=== PATIENT | female | born 1990 | race Caucasian/White ===

== ENCOUNTER → 2023-12-26 | Outpatient (CLI) | payer OTHER, SELFPAY | END | disposition home or self-care (01) | LOC: LABSPEC 16:39 | PROVIDERS: Referring Provider Nurse Practitioner Women's Health; Visit Provider Nurse Practitioner Women's Health | DX: N89.8 Other specified noninflammatory disorders of vagina (principal) | CPT/HCPCS: 87070; 87205; 87624; 88175; G0145 ==

== ENCOUNTER → 2025-06-17 | Outpatient (CLI) | payer OTHER, SELFPAY ==
--- OUTSIDE RECORDS SUMMARY | 2025-06-17 07:26 | XMS RPT_ITS | CCD ---
Author Organization [facility] Care Team Providers Care Software Support Representative Name Role Phone Shiraz Harmon Primary Care Provider Magdy APPRAISER ART, CHRISTOPHER Corbett Attending Provider Shiraz Harmon MD Primary Care Provider SHIRAZ HARMON Attending Unavailable SHIRAZ HARMON Primary Care Unavailable SHIRAZ HARMON Attending Unavailable SHIRAZ HARMON Primary Care Unavailable King SOLIS, Dr. Johnson Attending Provider [phone] Carlos ELY, Dr. Ng Primary Care Provider Dr. Shiraz Harmon MD Referring Provider Alex Tony Attending Unavailable Shiraz Harmon Referring Unavailable Shiraz Harmon Primary Care Unavailable Medications Current Medications Medication Drug Class(es) Dates Sig (Normalized) Sig (Original) acetaminophen 325 mg / butalbital 50 mg / caffeine 40 mg oral tablet (14 sources) Barbiturate, Central Nervous System Stimulant, Methylxanthine Start: 09-04-2019 butalbital-aceta minophen-caffein e 50-325-40 MG tablet Take 1 tablet by mouth. 09/04/2019 Active Start: 09-04-2019 take 1 tablet by mouth every four hours jaglgluasw-crlhbuqcpeash-gzcgsqnz (CAYDEN CET, ESGIC) 50-325-40 MG per tablet Take 1 tablet by mouth every 4 hours 0 09/04/2019 Active Ascorbic Acid (1 source) Vitamin C Ascorbic Acid (V ITAMIN C PO) Take by mouth 0 Active Lactobacillus acidophilus (1 source) Lactobacillus (PROBIOTIC ACIDOPHILUS PO) Take by mouth 0 Active levothyroxine sodium 0.088 mg oral tablet (20 sources) l-Thyroxine Start: 02-21-2025 take 1 tablet by mouth once daily Levothyroxine (Unithroid) 88 mcg tablet Active 88 ug PO daily 90 3 February 21, 2025 12:00am Start: 09-20-2022 End: 06-20-2024 take 1 tablet by mouth once daily Levothyroxine (Euthyrox) 75 mcg tablet Active 75 ug PO DAILY December 26, 2023 12:00am Start: 11-06-2020 take 1 tablet by elmira th once daily EUTHYROX 50 MCG tablet Take 1 tablet by mouth once daily 90 tablet 1 11/06/2020 Active Magnesium (15 sources) Start: 12-26-2023 take 1 tablet by elmira th once daily Magnesium 250 mg tablet Active 250 mg PO DAILY December 26, 2023 12:00am Start: 12-26-2023 take 250 mg by mouth once dai y Magnesium Active 250 MG PO DAILY December 26, 2023 12:00am MAGNESIUM PO Akbar e by mouth. Active MAGNESIUM PO Akbar e by mouth. 0 Active Magnesium Hydroxide (1 source) Magnesium Hydrox emmanuel (MAGNESIA PO) Take by mouth 0 Active Probiotic Product (PROBIOTIC PO) (13 sources) Probiotic Produc t (PROBIOTIC PO) Take by mouth. Active Probiotic Produc t (PROBIOTIC PO) Take by mouth. 0 Active rizatriptan 10 mg disintegrating oral tablet (2 sources) Serotonin-1b and Serotonin-1d Receptor Agonist Start: 08-01-2024 rizatriptan AFRICAN HISTORY PROFESSOR (Maxalt-AFRICAN HISTORY PROFESSOR) 10 MG disintegrating tablet Take 1 tablet (10 mg) by mouth Once as needed for migraine. May repeat in 2 hours if unresolved. Do not exceed 30 mg in 24 hours. 9 tablet 08/01/2024 Active saccharomyces boulardii 250 mg oral capsule (2 sources) Start: 12-26-2023 take 1 capsule by mouth twice daily Saccharomyces Boulardii (Daily Probiotic (S. Boulardii)) 250 mg capsule Active 250 mg PO TWICE A DAY December 26, 2023 12:00am Completed/Discontinued Medications Medication Drug Class(es) Dates Sig (Normalized) Sig (Original) acetaminophen 325 mg / oxyCODONE hydrochloride 5 mg oral tablet (2 sources) Opioid Agonist Start: 11-01-2015 End: 12-26-2023 Oxycodone-Acetamino phen 1 TABLET tablet Discontinued 1 - 2 {tbl} PO EVERY 4 HOURS NEEDED as needed for Pain 15 0 November 01, 2015 1:00am December 26, 2023 2:47pm Start: 11-01-2015 End: 12-26-2023 take 1 tablet by mouth every four hours as needed Oxycodone-Acetaminophen Discontinued 1 - 2 TABLET PO EVERY 4 HOURS NEEDED 15 November 01, 2015 1:00am December 26, 2023 2:47pm hydrOXYzine hydrochloride 25 mg oral tablet (2 sources) Antihistamine Start: 01-30-2024 End: 06-20-2024 take 25-50 mg by mouth every eight hours as needed for anxiety hydrOXYzine HCl (Atarax) 25 MG tablet Take 1-2 tablets (25-50 mg) by mouth every 8 hours as needed for anxiety. 15 tablet 01/30/2024 06/20/2024 Discontinued (Therapy completed) naproxen 250 mg oral tablet (2 sources) Nonsteroidal Anti-inflammatory Drug Start: 11-01-2015 End: 12-26-2023 take 2 tablets by mouth every eight hours as needed for pain Naproxen 250 MG tablet Discontinued 500 mg PO EVERY 8 HOURS NEEDED as needed for MILD PAIN () 40 0 November 01, 2015 1:00am December 26, 2023 2:46pm Start: 11-01-2015 End: 12-26-2023 take 500 mg by mouth every eight hours as needed Naproxen Discontinued 500 MG PO EVERY 8 HOURS NEEDED 40 November 01, 2015 1:00am December 26, 2023 2:46pm Pedi Multivitamin No.79-Iron (Flintstones With Iron Tab Chew) 18 MG tablet,chewable (2 sources) Start: 10-21-2015 End: 12-26-2023 take 1 tablet by mouth once daily Pedi Multivitamin No.79-Iron (Flintstones With Iron Tab Chew) 18 MG tablet,chewable Discontinued 18 mg PO DAILY October 21, 2015 1:00am December 26, 2023 2:47pm Start: 10-21-2015 End: 12-26-2023 take 1 tablet by mouth once daily Pedi Multivitamin No.79-Iron (Flintstones With Iron Tab Chew) 18 MG tablet,chewable Discontinued 18 MG PO DAILY October 21, 2015 1:00am December 26, 2023 2:47pm Problems Active Problems Problem Classification Problem Date Documented Date Episodic/Chronic Headache; including migraine (20 sources) Migraine without aura, not refractory ; Translations: [Migraine without aura, not intractable, without status migrainosus] Onset: 05-09-2020 05-09-2020 Chronic Malaise and fatigue (13 sources) Fatigue; Translations: [Chronic fatigue, unspecified] Onset: 05-09-2020 06-06-2022 Chronic Mood disorders (17 sources) Dysthymia; Translations: [Dysthymic disorder] Onset: 07-08-2022 07-08-2022 Chronic Other female genital disorders (1 source) Other specified noninflammatory disorders of vagina; Translations: [Pruritus of genital organs] 12-26-2023 Episodic Residual codes; unclassified (1 source) Influenza vaccination declined; Translations: [Immunization not carried out because of patient refusal] 06-20-2024 Episodic Thyroid disorders (20 sources) 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; Translations: [Other specified hypothyroidism] Onset: 05-09-2020 05-09-2020 Chronic Unclassified (1 source) Patient encounter status; Translations: [Annual physical exam] Onset: 11-06-2020 11-06-2020 Past or Other Problems Problem Classification Problem Date Documented Da te Episodic/Chronic Cardiac dysrhythmias (15 sources) Palpitations; Translations: [Palpitations] Onset: 11-06-2020 11-06-2020 Episodic Malaise and fatigue (1 source) Fatigue; Translations: [Chronic fatigue] Onset: 05-09-2020 05-09-2020 Episodic Mood disorders (6 sources) Mood disorders Onset: 12-12-2023 Resolved: 12-19-2024 12-12-2023 Other hematologic conditions (14 sources) Personal history of diseases of the blood and blood-forming organs and certain disorders involving the immune mechanism; Translations: [History of thrombocytopenia] Onset: 04-03-2015 05-09-2020 Episodic Residual codes; unclassified (2 sources) Immunization not carried out because of patient refusal; Translations: [Immunization not carried out because of patient refusal] Onset: 06-20-2024 Episodic Results Test Name Value Interpretation Reference Range Facility Endocrinology Visit Reporton 02-21-2025 Endocrinology Visit Report [facility] [address] [place] [address]. [address] [place] [address] OFFICE VISIT Date of Service: 02/21/25 MR#: [id number] Acct: [id number] Name: TINY MORENO Rep #: [id number] : 1990 Provider: Cristhian Panchal Age/Sex: 34/F Location: [facility] Status: Signed Intake Vital Signs 12/26/23 14:53 02/21/25 13:06 Height 5 ft 6 in 5 ft 6 in Weight: 153 lb 4 oz BMI 24.7 BP 110/73 Blood Pressure Location Lt brachial Position Sitting Pulse 79 Pulse Source Monitor Pulse Oximetry (%) 99 Oxygen Delivery Method room air Intake Visit Reasons: Hypothyroid Chief Complaint: Thyroid Is patient in pain?: No Allergies No Known Allergies Allergy (Verified 12/26/23 14:46) Medications ???Medication ???Instructions ???Recorded ???Confirmed ???Type Saccharomyces boulardii 250 mg 250 mg PO BID 12/26/23 02/21/25 Hi story capsule (Daily Probiotic (S. boulardii)) levothyroxine 75 mcg tablet 75 mcg PO DAILY 12/26/23 02/21/25 History (Euthyrox) magnesium 250 mg tablet 250 mg PO DAILY 12/26/23 02/21/25 History levothyroxine 88 mcg tablet 88 mcg PO QDAY #90 tabs 02/21/25 0 02/21/25 Rx (Unithroid) PFSH Medical History Migraines UTI (urinary tract infection) Bone fracture Anemia Danielle's thyroiditis Surgical History H/O laparoscopy Family History Grandfather Breast cancer Paternal Grandfather Cancer Paternal- Lung Colon cancer Grandfather Cancer Lung and Brain - Maternal Other Crohn's disease Depression Hypertension Myocardial infarction Seizures Thyroid disorder Social History household members: spouse current occupation: [employer] Smoking Status: Never smoker alcohol intake: never substance use type: does not use seatbelt use: always do you feel safe at home: Yes additional social history: - [employer] HPI HPI Chief Complaint: Thyroid Details: * TINY MORENO, is a 34 F who presents to the office today for evaluation and management of thyroid disease. * * She reports she had abnormal thyroid studies in her 20's. In 2019 she was told she had Danielle's thyroiditis and was started on levothyroxine 50 mcg for 3 months and then 75 mcg. * * She states that she feels that something is off, but it isn't showing up in her labs. She thinks her dose needs to be changed. * She reports hair loss, difficulty losing weight. She reports increased emotions. Cycles are regular. * * She reports difficulty losing weight despite a healthy diet and regular exercise. ROS Const Constitutional: Positive for fatigue and other (difficulty losing weight); No weight change or change in appetite Eyes Eyes: No change in vision ENT ENT: No dizziness/vertigo or difficulty swallowing Cardio Cardiology: No chest pain at rest, chest pain with exertion, shortness of breath or palpitations Musc Musculoskeletal: No abnormal gait, joint pain, numbness or tingling Neuro Neurology: No abnormal gait, memory loss, numbness or tingling Psych Psychiatric: No change in appetite, No memory loss, Positive for mood swings and No Thoughts of harming yourself/Others Resp Respiratory: No cough, chest congestion or shortness of breath Gastro GI: No abdominal pain, constipation, diarrhea or difficulty swallowing Genitourinary-Female : No burning urination Skin Skin: No itchy eyes or wounds Endo Endocrine: Positive for fatigue; No weight change Aller/Imm Allergy/Immunologic: No itchy eyes Exam Const General: cooperative, healthy appearing, comfortable, no acute distress, well developed and not cushingoid Nutritional Appearance: well nourished Orientation: alert, awake and oriented x3 HENMT Head: normal to inspection Ears: hearing grossly normal bilaterally Nose: external nose normal Mouth: oral mucosae normal Eyes General: appearance normal, both eyes and all related structures Alignment and Position: alignment normal Periorbital: periorbital findings normal Eyelids: eyelids normal Conjunctivae: conjunctivae normal Neck Neck: normal visual inspection Neck mass: No Thyroid: thyroid normal and firm Lymphatic: no lymphadenopathy noted Chest Chest palpation inspection: normal inspection of the chest Resp Effort Inspection: normal respiratory effort, able to speak in complete sentences, symmetric chest movement, no audible wheezes and no cough Auscultation: Bilateral: Clear to Auscultation Cardio Rate: regular rate Rhythm: regular rhythm Pulses: posterior tibial pulses present Skin General: no (more content not included)... Normal [facility] 36on 12-21-2024 36 ----- Message from Shiraz Harmon MD sent at 12/21/2024 6:25 AM EDT ----- Thyroid test TSH free T4 and free T3 are all normal. Thyroglobulin antibodies are normal however thyroid peroxidase antibodies are little high, recommend endocrinology referral for further evaluation Normal [facility] Office Visiton 12-19-2024 Follow-up visit [id number] Josh,iTny Nichols 1990 F Date Provider Department Center 12/19/2024 [id number] HARMON [facility] Family History Problem Relation Age of Onset Asthma Brother No Known Problems Father Asthma Sister Depression Mother Cancer Paternal Grandmother Substance Abuse Paternal Grandfather Family Status - Relation Status Age at Brother Alive Father Alive Sister Alive Mother Alive Paternal Grandmother Paternal Grandfather Maternal Grandmother Maternal Grandfather Level of Service:58129 UT PERIODIC PREVENTIVE MED EST PATIENT 18-39 YRS Reason for Visit and Comments: Annual Exam [83] Blood Work [500578] - Cmp and lipid and tsh done 06/03/24 Health Maintenance [872] - Hiv/hep c screening- refuse Hep b vaccine- refuse Normal [facility] Progress Noteon 12-19-2024 Progress Note Stable, continue Fioricet and Maxalt as needed. Normal [facility] Progress Note Mood swings, currently not on any medication and is not interested in taking any at this time Normal [facility] Progress Note Stable, we will check thyroid levels and antibody levels to see if there has been any significant change. Normal [facility] Progress Note 12/19/2024 Tinynoah Moreno (: 1990) is a 34 y.o. female , Established patient, here for evaluation of the following chief complaint(s): Annual Exam, Blood Work (Cmp and lipid and tsh done 06/03/24), and Health Maintenance (Hiv/hep c screening- refuse/Hep b vaccine- refuse) ASSESSMENT/PLAN: 1. Annual physical exam 2. 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 Orders: - Anti-thyroglobulin antibody - TSH - Thyroid peroxidase antibody - T4, free - T3, free 3. Dysthymia Assessment & Plan: Mood swings, currently not on any medication and is not interested in taking any at this time 4. Migraine without aura and without status migrainosus, not intractable Assessment & Plan: Stable, continue Fioricet and Maxalt as needed. Follow up in about 6 months (around 06/20/2025). SUBJECTIVE/OBJECTIVE : CARMELO Quijano comes in today for an annual checkup, she had a lot of blood work done back in May so we do not need to recheck her cholesterol or her chemistries. Her only real complaint today is that she just feels like her thyroid is off she has a history of Danielle's thyroiditis, she feels like her neck is swollen feels like her voice is changed and mood swings. No other complaints, see ROS. Review of Systems Constitutional: Negative for chills and fever. Respiratory: Negative for shortness of breath. Cardiovascular: Negative for chest pain and palpitations. Gastrointestinal: Negative for abdominal pain, blood in stool, constipation and diarrhea. Genitourinary: Negative for dyspareunia, dysuria, frequency, hematuria and urgency. Neurological: Negative for weakness and numbness. Psychiatric/Behavior al: Negative for dysphoric mood. The patient is not nervous/anxious. Vitals: 12/19/24 0841 BP: 88/54 Pulse: 76 SpO2: 98% Weight: 151 lb 9.6 oz (68.8 kg) Height: 5' 5.5" (1.664 m) Physical Exam Vitals and nursing note reviewed. Constitutional: General: She is not in acute distress. Appearance: Normal appearance. HENT: Head: Normocephalic. Right Ear: Tympanic membrane, ear canal and external ear normal. Left Ear: Tympanic membrane, ear canal and external ear normal. Mouth/Throat: Mouth: Mucous membranes are moist. Pharynx: Oropharynx is clear. Eyes: Extraocular Movements: Extraocular movements intact. Pupils: Pupils are equal, round, and reactive to light. Neck: Thyroid: No thyromegaly. Cardiovascular: Rate and Rhythm: Normal rate and regular rhythm. Heart sounds: Normal heart sounds. No murmur heard. Pulmonary: Effort: Pulmonary effort is normal. Breath sounds: Normal breath sounds. Abdominal: General: Bowel sounds are normal. Palpations: Abdomen is soft. Musculoskeletal: General: Normal range of motion. Cervical back: Normal range of motion. Lymphadenopathy: Cervical: No cervical adenopathy. Skin: General: Skin is warm and dry. Neurological: General: No focal deficit present. Mental Status: She is alert and oriented to person, place, and time. Psychiatric: Mood and Affect: Mood normal. An electronic signature was used to authenticate this note. Shiraz Harmon MD 12/19/2024 9:22 AM [facility] Progress Note Patient verified by last name and date of . [facility] 36on 08-08-2024 36 This was switched to Maxalt, awaiting prior auth for this med. [facility] 36on 08-06-2024 36 Waiting for payer response. [facility] 36on 08-02-2024 36 [facility] Office Visiton 06-20-2024 Follow-up visit [id number] Tiny Moreno 1990 F Date Provider Department Center 06/20/2024 [id number] HARMON [facility] Family History Problem Relation Age of Onset Asthma Brother No Known Problems Father Asthma Sister Depression Mother Cancer Paternal Grandmother Substance Abuse Paternal Grandfather Family Status - Relation Status Age at Brother Alive Father Alive Sister Alive Mother Alive Paternal Grandmother Paternal Grandfather Maternal Grandmother Maternal Grandfather Level of Service:42835 UT OFFICE/OUTPATIENT ESTABLISHED LOW MDM 20 MIN Reason for Visit and Comments: Hypothyroidism [143] Migraine [253632] Medication Check [4861414060] - 6 month Health Maintenance [872] - Pap- sees [facility] - will send for last pap from 12/2023 Flu vaccine- refuse Covid vaccine- not done [facility] Progress Noteon 06-20-2024 Progress Note Stable, continue Fioricet as needed. Normal [facility] Progress Note Stable, she brings in lab work which is excellent she has normal thyroid levels, will continue Euthyrox 75 mcg daily. Normal [facility] Progress Note Patient verified by last name and date of . Normal [facility] Progress Note 06/20/2024 Tiny Moreno (: 1990) is a 33 y.o. female , Established patient, here for evaluation of the following chief complaint(s): Hypothyroidism, Migraine, Medication Check (6 month ), and Health Maintenance (Pap- sees [facility] - will send for last pap from 12/2023/Flu vaccine- refuse/Covid vaccine- not done) ASSESSMENT/PLAN: 1. 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 2. Migraine without aura and without status migrainosus, not intractable Assessment & Plan: Stable, continue Fioricet as needed. 3. Influenza vaccine refused Follow up in about 6 months (around 12/19/2024). SUBJECTIVE/OBJECTIVE : CARMELO Quijano comes in today for 6-month follow-up on her hypothyroidism, she has no complaints today says she is doing well on her medications she is wondering if there is anything natural or homeopathic that she can take for her thyroid which currently is not possible. She has no other complaints at this time, see ROS. Her migraines seem to be well-controlled. She brings in lab work which is essentially all normal. Review of Systems Constitutional: Negative for chills and fever. Respiratory: Negative for shortness of breath. Cardiovascular: Negative for chest pain and palpitations. Gastrointestinal: Negative for abdominal pain, blood in stool, constipation and diarrhea. Genitourinary: Negative for dysuria, frequency, hematuria and urgency. Neurological: Negative for weakness and numbness. Psychiatric/Behavior al: Negative for dysphoric mood. The patient is not nervous/anxious. Vitals: 06/20/24 0833 BP: 99/64 Pulse: 81 SpO2: 98% Weight: 154 lb 9.6 oz (70.1 kg) Height: 5' 5.5" (1.664 m) Physical Exam Vitals and nursing note reviewed. Constitutional: General: She is not in acute distress. Appearance: Normal appearance. HENT: Head: Normocephalic. Right Ear: Tympanic membrane, ear canal and external ear normal. Left Ear: Tympanic membrane, ear canal and external ear normal. Mouth/Throat: Mouth: Mucous membranes are moist. Pharynx: Oropharynx is clear. Eyes: Extraocular Movements: Extraocular movements intact. Pupils: Pupils are equal, round, and reactive to light. Neck: Vascular: No carotid bruit. Cardiovascular: Rate and Rhythm: Normal rate and regular rhythm. Heart sounds: Normal heart sounds. No murmur heard. Pulmonary: Effort: Pulmonary effort is normal. Breath sounds: Normal breath sounds. Abdominal: General: Bowel sounds are normal. Palpations: Abdomen is soft. Musculoskeletal: General: Normal range of motion. Cervical back: Normal range of motion. Lymphadenopathy: Cervical: No cervical adenopathy. Skin: General: Skin is warm and dry. Neurological: General: No focal deficit present. Mental Status: She is alert and oriented to person, place, and time. Psychiatric: Mood and Affect: Mood normal. An electronic signature was used to authenticate this note. Shiraz Harmon MD 06/20/2024 11:19 AM [facility] 36on 06-18-2024 36 lm to pre-visit plan for appointment with Dr Harmon on 06/20/24 8:45. Please ask patient to arrive 15 minutes early with Photo ID, insurance card Fasting: no Put call through to office for pvp [facility] 36on 04-03-2024 36 Prescription Request: Last medication check: 07/08/22 Last physical exam: 12/12/23 Next scheduled appointment: 06/20/24 Last date of refill on this medication: 01/17/24 [facility] 36on 01-17-2024 36 Reviewed chart. Refill appropriate. RX sent. [facility] 36 Prescription Request: Last medication check: 07/08/22 Last physical exam: 12/12/23 Next scheduled appointment: 06/20/24 Last date of refill on this medication: 09/30/23 [facility] Gram stain for investigation of transfusion reactionOrdered By: Chelle Curran on 12-26-2023 Microscopic observation Gram stain Nom (Unsp spec) [facility] No Panel InformationOrdered By: Chelle Curran on 12-26-2023 Genital Culture Neisseria or beta-hemolytic Streptococcus isolated. [facility] Vital Signs Date Time Vital Sign Value Performing Clinician Sheldon lay 02-21-2025 13:06-0400 Body height 167.[address] Shiraz Harmon MD Work Phone: [facility] 02-21-2025 13:06-0400 Body mass index (BMI) [Ratio] 24.7 kg/m2 Dr. Shiraz Harmon MD Work Phone: [facility] 02-21-2025 13:06-0400 Body weight 69.[address] Shiraz Harmon MD Work Phone: [facility] 02-21-2025 13:06-0400 Diastolic blood pressure 73 mm[Hg] Dr. Shiraz Harmon MD Work Phone: [facility] 02-21-2025 13:06-0400 Heart rate 79 /min Dr. Shiraz Harmon MD Work Phone: [facility] 02-21-2025 13:06-0400 SaO2% (BldA) [Mass fraction] 99 % Dr. Shiraz Harmon MD Work Phone: [facility] 02-21-2025 13:06-0400 Systolic blood pressure 110 mm[Hg] Dr. Shiraz Harmon MD Work Phone: [facility] 12-19-2024 08:41-0400 Body height 166.4 cm Shiraz Harmon MD Work Phone: [facility] 12-19-2024 08:41-0400 Body mass index (BMI) [Ratio] 24.84 kg/m2 Shiraz Harmon MD Work Phone: [facility] 12-19-2024 08:41-0400 Body weight 68.77 kg Shiraz Harmon MD Work Phone: [facility] 12-19-2024 08:41-0400 Diastolic blood pressure 54 mm[Hg] Shiraz Harmon MD Work Phone: [facility] 12-19-2024 08:41-0400 Heart rate 76 /min Shiraz Harmon MD Work Phone: [facility] 12-19-2024 08:41-0400 SaO2% (BldA) [Mass fraction] 98 % Shiraz Harmon MD Work Phone: [facility] 12-19-2024 08:41-0400 Systolic blood pressure 88 mm[Hg] Shiraz Harmon MD Work Phone: [facility] 06-20-2024 08:33-0400 Body height 166.4 cm Shiraz Harmon MD Work Phone: [facility] 06-20-2024 08:33-0400 Body mass index (BMI) [Ratio] 25.34 kg/m2 Shiraz Harmon MD Work Phone: [facility] 06-20-2024 08:33-0400 Body weight 70.13 kg Shiraz Harmon MD Work Phone: [facility] 06-20-2024 08:33-0400 Diastolic blood pressure 64 mm[Hg] Shiraz Harmon MD Work Phone: [facility] 06-20-2024 08:33-0400 Heart rate 81 /min Shiraz Harmon MD Work Phone: [facility] 06-20-2024 08:33-0400 SaO2% (BldA) [Mass fraction] 98 % Shiraz Harmon MD Work Phone: [facility] 06-20-2024 08:33-0400 Systolic blood pressure 99 mm[Hg] Shiraz Harmon MD Work Phone: [facility] 12-26-2023 14:53-0400 Body height 167.64 cm [employer] Chelle Curran [employer] Work Phone: [facility] 12-26-2023 14:41-0400 Body mass index (BMI) [Ratio] 24.5 kg/m2 [employer] Chelle Curran [employer] Work Phone: [facility] 12-26-2023 14:41-0400 Body weight 68.94 kg [employer] Chelle Lopezs [employer] Work Phone: [facility] 12-26-2023 14:41-0400 Diastolic blood pressure 74 mm[Hg] [employer] Chelle Magdy [employer] Work Phone: [facility] 12-26-2023 14:41-0400 Systolic blood pressure 118 mm[Hg] [employer] Chelle Magdy [employer] Work Phone: [facility] 12-12-2023 08:44-0400 Body height 166.4 cm Shiraz Harmon MD Work Phone: [facility] 12-12-2023 08:44-0400 Body mass index (BMI) [Ratio] 25.4 kg/m2 Shiraz Harmon MD Work Phone: [facility] 12-12-2023 08:44-0400 Body weight 70.31 kg Shiraz Harmon MD Work Phone: [facility] 12-12-2023 08:44-0400 Diastolic blood pressure 69 mm[Hg] Shiraz Harmon MD Work Phone: [facility] 12-12-2023 08:44-0400 Heart rate 96 /min Shiraz Harmon MD Work Phone: [facility] 12-12-2023 08:44-0400 SaO2% (BldA) [Mass fraction] 98 % Shiraz Harmon MD Work Phone: [facility] 12-12-2023 08:44-0400 Systolic blood pressure 100 mm[Hg] Shiraz Harmon MD Work Phone: [facility] Encounters Encounter Date Encounter Type Care Provider Facility Start: 02-21-2025 End: 02-21-[address] Alex Tony MD -[facility] Work Phone: Start: 02-21-2025 End: 02-21-[address] 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; Dysthymia; Migraine without aura and without status migrainosus, not intractable Start: 12-19-2024 End: 12-19-2024 ambulatory [facility] Start: 12-19-2024 End: 12-19-2024 Encounter for general adult medical examination without abnormal findings [facility] Start: 06-20-2024 End: 06-20-2024 Office outpatient visit 15 minutes Shiraz Harmon MD Work Phone: [facility] Comment on above: Hypothyroidism due t o Danielle's thyroiditis (Primary Dx); Migraine without aura and without status migrainosus, not intractable; Influenza vaccine refused Start: 06-20-2024 End: 06-20-2024 ambulatory [facility] Start: 04-03-2024 End: 04-03-2024 Refill Shiraz Harmon MD Work Phone: [facility] Start: 01-15-2024 Refill Susana Mccarthy APRN - PITCH GATHERER Work Phone: [facility] Start: 12-26-2023 End: 12-26-2023 ambulatory [employer]-Chary Curran [employer] Work Phone: [facility] Work Phone: Start: 12-26-2023 End: 12-26-2023 Patient encounter procedure ELVI-Chary Curran [employer] Work Phone: [facility]-Laboratory, Specimen Work Phone: Start: 12-26-2023 End: 12-26-2023 Patient encounter procedure [employer] [employer] Chelle Lopezs [employer] Work Phone: [facility] Work Phone: Start: 12-12-2023 End: 12-12-2023 Patient encounter procedure Shiraz Harmon MD Work Phone: [facility] Work Phone: Start: 12-12-2023 End: 12-12-2023 Periodic preventive med est patient 18-39 yrs Shiraz Harmon MD Work Phone: [facility] Comment on above: Annual physical exam (Primary Dx); 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; Migraine without aura and without status migrainosus, not intractable Start: 09-30-2023 Refill Shiraz Harmon MD Work Phone: [facility] Start: 03-28-2023 Refill Shiraz Harmon MD Work Phone: [facility] Start: 11-26-2020 End: 11-26-2020 Subsequent hospital visit by physician Shiraz Harmon Work Phone: [facility] Comment on above: Palpitations Procedures Date Procedure Procedure Detail Performing Clinician Start: 12-26-2023 Genital Culture [employer] Coy Curran [employer] Work Phone: Start: 12-26-2023 Investigation of transfusion reaction [employer] Chelle Magdy [employer] Work Phone: Start: 12-26-2023 Microscopic observat ion [Identifier] in Cervix by Cyto stain Shiraz Harmon MD Work Phone: Start: 12-10-2023 Thyrotropin [Units/v olume] in Serum or Plasma Susana Rodrigues CNP Work Phone: Start: 07-08-2022 Thyrotropin [Units/v olume] in Serum or Plasma Shiraz Harmon MD Work Phone: Plan of Treatment Date Care Activity Detail Author Start: 2063 RSV Immunization for Adults (1 - 1-dose 75+ series) RSV Immunization for Adults (1 - 1-dose 75+ series) [facility] Start: 2048 RSV Immunization age d 60 or older (1 - 1-dose 60+ series) RSV Immunization aged 60 or older (1 - 1-dose 60+ series) [facility] Start: 2038 Zoster Vaccines (1 of 2) Zoster Vacc forrest (1 of 2) [facility] Start: 12-25-2028 Screening for malign ant neoplasm of cervix [facility] Start: 12-25-2026 Screening for malign ant neoplasm of cervix Pap Smear [facility] Start: 12-19-2025 Hepatitis B Vaccines (1 of 3 - 19+ 3-dose series) Hepatitis B Vaccines (1 of 3 - 19+ 3-dose series) [facility] Comment on above: Postponed from 06/24 (Patient Refused) Start: 12-19-2025 Hepatitis C screening Hepatitis C Sc reening [facility] Comment on above: Postponed from 06/24 (Patient Refused) Start: 12-19-2025 HIV screening HIV Screening [facility] Comment on above: Postponed from 06/24 (Patient Refused) Start: 08-25-2025 DTaP/Tdap/Td vaccine (2 - Td) DTaP/Tdap/Td vaccine (2 - Td) [facility] Work Phone: Start: 08-25-2025 DTaP/Tdap/Td Vaccine s (2 - Td or Tdap) DTaP/Tdap/Td Vaccines (2 - Td or Tdap) [facility] Start: 06-25-2025 End: 06-25-2025 Patient encounter procedure 06/25/2025 9:00 AM EST Office Visit [facility] [address] [place] [address] Shiraz Harmon MD [address] [place] [address] [facility] Start: 06-20-2025 COVID-19 Vaccine ( season) COVID-19 Vaccine ( season) [facility] Comment on above: Postponed from 04/22 (Patient Refused) Start: 06-20-2025 Depression Monitoring Depression 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 Expected: 12/19/2024 (Approximate), Expires: 12/19/2025 [facility] Comment on above: Expected: 12/19/2024 (Approximate), Expires: 12/19/2025 Start: 12-19-2024 End: 12-19-2025 Thyroxine (T4) free [Mass/volume] in Serum or Plasma T4, free Lab Routine 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 Expected: 12/19/2024 (Approximate), Expires: 12/19/2025 [facility] Comment on above: Expected: 12/19/2024 (Approximate), Expires: 12/19/2025 Start: 12-19-2024 End: 12-19-2025 Triiodothyronine (T3) Free [Mass/volume] in Serum or Plasma T3, free Lab Routine 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 Expected: 12/19/2024 (Approximate), Expires: 12/19/2025 [facility] Comment on above: Expected: 12/19/2024 (Approximate), Expires: 12/19/2025 Start: 12-19-2024 End: 12-19-2024 Patient encounter procedure 12/19/2024 8:45 AM EDT Office Visit [place] [address] [place] [address] Shiraz Harmon MD [address] [place] [id number] [facility] Start: 12-11-2024 COVID-19 Vaccine ( season) COVID-19 Vaccine ( season) [facility] Comment on above: Postponed from 04/22 (Patient Refused) Start: 12-11-2024 Hepatitis B Vaccines (1 of 3 - 19+ 3-dose series) Hepatitis B Vaccines (1 of 3 - 19+ 3-dose series) [facility] Comment on above: Postponed from 06/24 (Patient Refused) Start: 12-11-2024 Hepatitis C screening Hepatitis C [facility] Comment on above: Postponed from 06/24 (Patient Refused) Start: 12-11-2024 HIV screening HIV Screening [facility] Comment on above: Postponed from 06/24 (Patient Refused) Start: 12-09-2024 Thyroid stimulating hormone measurement TSH Level [facility] Start: 06-20-2024 End: 06-20-2024 Patient encounter procedure 06/20/2024 8:45 AM EDT Office Visit [facility] [address] [facility] [address] Shiraz Harmon MD [address] [place] [address] [facility] Start: 06-12-2024 Depression Monitoring Depression Mon itoring [facility] Start: 06-12-2024 Depresssion Monitoring Depresssion M onitoring [facility] Start: 04-22-2024 Influenza vaccination [facility] [place] Start: 12-26-2023 Liquid based cervica l cytology screening [facility] Start: 12-12-2023 End: 12-12-2023 Patient encounter procedure 12/12/2023 8:45 AM EDT Office Visit [address] [address] Shiraz Harmon MD [address] [place] [address] [facility] Start: 07-08-2023 Thyroid stimulating hormone measurement TSH Level [facility] Start: 04-22-2023 Influenza vaccination Influenza Vacc ine (#1) [facility] Start: 11-06-2021 TSH Qn TSH testing [facility] Work Phone: Start: 11-05-2021 Hepatitis C screening Hepatitis C sc reen [facility] Work Phone: Comment on above: Postponed from 06/24 (Patient Refused) Start: 11-05-2021 HIV screening HIV screen [facility] Work Phone: Comment on above: Postponed from 06/24 (Patient Refused) Start: 05-09-2021 Influenza vaccination Flu vacc ine (Season Ended) [facility] Work Phone: Comment on above: Postponed from 04/22 (Patient Refused) Start: 2018 Screening for malign ant neoplasm of cervix [facility] Start: 2009 Screening for malign ant neoplasm of cervix [facility] Start: 2006 Hepatitis C screening Hepatitis C Sc reening [facility] Start: 2004 COVID-19 Vaccine (1) COVID-19 Vaccin e (1) [facility] Work Phone: Start: 2000 Depresssion Monitoring Depresssion M onitoring [facility] Start: 1989 MMR Vaccines (1 of 1 - Standard series) MMR Vaccines (1 of 1 - Standard series) [facility] Start: 1988 COVID-19 Vaccine (#1) COVID-19 Vacci ne (#1) [facility] Start: 1988 Hepatitis B Vaccines (1 of 3 - 3-dose series) Hepatitis B Vaccines (1 of 3 - 3-dose series) [facility] Start: 1988 HIV screening HIV Screening [facility] kameron Path report.final Dx Spec [facility] T4 free measurement [facility] Thyroid stimulating hormone measurement [facility] Immunizations Immunization Date Immunization Notes Care Provider Diego betts 08-26-2015 RHO(D) immune globul [facility] 08-25-2015 tetanus toxoid, redu gelacio diphtheria toxoid, and acellular pertussis vaccine, adsorbed [facility] 11-09-2012 RHO(D) immune globul in - IM [facility]: 03-12-2011 RHO(D) immune globul in IM [facility] Payers Date Payer Category Payer Self-pay 2025 Private Health Insurance [id number] 2023 Commercial Managed C are - HMO [employer] [id number] 2023 Private Health Insurance KEVON DELGADO [id number] 2023-Present [address] [place] [address] Commercial [id number] 2023 Private Health Insurance [id number] 2012 Unknown [id number] 2012 Unknown [facility] [id number] 2012-Present [address] [place] [address] Commercial [id number] Unknown [id number] Social History Date Type Detail Facility Start: 11-06-2020 End: 12-26-2023 Tobacco smoking status [facility] Never smoker [employer] Start: 11-06-2020 Tobacco use and exposure Never used [employer] Work Phone: Start: 11-06-2020 End: 12-19-2024 Alcohol intake Lifetime non-drinker (finding) [employer] Work Phone: Start: 09-27-2019 End: 11-05-2020 History SDOH Alcohol Frequency 1 [email or web address] Work Phone: Start: 11-05-2020 History SDOH Physical Activity DPW 3 [email or web address] Work Phone: Start: 11-05-2020 History SDOH Financial 5 [email or web address] Work Phone: Start: 11-05-2020 History SDOH Transport Med 2 [email or web address] Work Phone: Sex Assigned At Not on file [email or web address] Work Phone: Exposure to SARS-CoV -2 (event) Not sure [email or web address] Work Phone: Start: 07-08-2022 End: 12-18-2024 History of Social function [facility] Start: 07-08-2022 End: 12-18-2024 Tobacco use panel [facility] How hard is it for y ou to pay for the very basics like food, housing, medical care, and heating Not hard at all [facility] (I/We) worried whearjun er (my/our) food would run out before (I/we) got money to buy more. Never true [facility] Start: 1990 Sex Assigned At Female [facility] Start: 06-10-2022 Gender identity Identifies as female gender (finding) [facility] Start: 06-10-2022 Sexual orientation Heterosexual (finding) [facility] In the past 12 month s, was there a time when you were not able to pay the mortgage or rent on time? No [facility] Start: 12-26-2023 Tobacco smoking status NHIS Unknown if ever smoked [facility] Start: 03-22-2022 Sex Female (finding) [facility] Do you belong to any clubs or organizations such as baptism groups, unions, fraternal or athletic groups, or school groups? Yes [facility] Are you now , , , , never or living with a partner? [facility] How often to you hav e a drink containing alcohol? Never [facility] Do you feel stress - tense, restless, nervous, or anxious, or unable to sleep at night because your mind is troubled all the time - these days [OSQ] Only a little [facility] Clinical Notes 03-28-2023 to 12-21-2024 Assessment & Plan Note - Shiraz Harmon MD - 12/19/2024 9:22 AM EDTAssessment & Plan Note - Shiraz Harmon MD - 12/19/2024 9:22 AM Radha Peterson MA - 12/19/2024 8:45 AM EDT Note Date & Type Note Facility 12-21-2024 Note Referral placed with Dr. Tony per request. [facility] 12-21-2024 Note Spoke to patient agr eeable to referral. Would like to see Dr. Alex Tony through [facility], as she already sees providers through [facility] and location is closer. Please place referral. [facility] 12-19-2024 Evaluation + Plan note Associated Problem(s): Migraine without aura and without status migrainosus, not intractable Stable, continue Fioricet and Maxalt as needed. 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 [facility] 12-19-2024 Miscellaneous Notes Associate d Problem(s): Migraine without aura and without status migrainosus, not intractable Stable, continue Fioricet and Maxalt as needed. 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 documented in this encounter [facility] 12-19-2024 History of Presen t illness Narrative Patient verified by last name and date of . Images from the original note were not included. 12/19/2024 Tiny Moreno (: 1990) is a 34 y.o. female , Established patient, here for evaluation of the following chief complaint(s): Annual Exam, Blood Work (Cmp and lipid and tsh done 06/03/24), and Health Maintenance (Hiv/hep c screening- refuse/Hep b vaccine- refuse) ASSESSMENT/PLAN: 1. Annual physical exam 2. 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 Orders: - Anti-thyroglobulin antibody - TSH - Thyroid peroxidase antibody - T4, free - T3, free 3. Dysthymia Assessment & Plan: Mood swings, currently not on any medication and is not interested in taking any at this time 4. Migraine without aura and without status migrainosus, not intractable Assessment & Plan: Stable, continue Fioricet and Maxalt as needed. Follow up in about 6 months (around 06/20/2025). SUBJECTIVE/OBJECTIVE: CARMELO Quijano comes in today for an annual checkup, she had a lot of blood work done back in May so we do not need to recheck her cholesterol or her chemistries. Her only real complaint today is that she just feels like her thyroid is off she has a history of Danielle's thyroiditis, she feels like her neck is swollen feels like her voice is changed and mood swings. No other complaints, see ROS. Review of Systems Constitutional: Negative for chills and fever. Respiratory: Negative for shortness of breath. Cardiovascular: Negative for chest pain and palpitations. Gastrointestinal: Negative for abdominal pain, blood in stool, constipation and diarrhea. Genitourinary: Negative for dyspareunia, dysuria, frequency, hematuria and urgency. Neurological: Negative for weakness and numbness. Psychiatric/Behavioral: Negative for dysphoric mood. The patient is not nervous/anxious. Vitals: 12/19/24 0841 BP: 88/54 Pulse: 76 SpO2: 98% Weight: 151 lb 9.6 oz (68.8 kg) Height: 5' 5.5" (1.664 m) Physical Exam Vitals and nursing note reviewed. Constitutional: General: She is not in acute distress. Appearance: Normal appearance. HENT: Head: Normocephalic. Right Ear: Tympanic membrane, ear canal and external ear normal. Left Ear: Tympanic membrane, ear canal and external ear normal. Mouth/Throat: Mouth: Mucous membranes are moist. Pharynx: Oropharynx is clear. Eyes: Extraocular Movements: Extraocular movements intact. Pupils: Pupils are equal, round, and reactive to light. Neck: Thyroid: No thyromegaly. Cardiovascular: Rate and Rhythm: Normal rate and regular rhythm. Heart sounds: Normal heart sounds. No murmur heard. Pulmonary: Effort: Pulmonary effort is normal. Breath sounds: Normal breath sounds. Abdominal: General: Bowel sounds are normal. Palpations: Abdomen is soft. Musculoskeletal: General: Normal range of motion. Cervical back: Normal range of motion. Lymphadenopathy: Cervical: No cervical adenopathy. Skin: General: Skin is warm and dry. Neurological: General: No focal deficit present. Mental Status: She is alert and oriented to person, place, and time. Psychiatric: Mood and Affect: Mood normal. An electronic signature was used to authenticate this note. Shiraz Harmon MD 12/19/2024 9:22 AM documented in this encounter [facility] 06-20-2024 Evaluation + Plan note Associated Problem(s): Migraine without aura and without status migrainosus, not intractable Stable, continue Fioricet as needed. 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 [facility] 06-20-2024 Miscellaneous Notes Associate d Problem(s): Migraine without aura and without status migrainosus, not intractable Stable, continue Fioricet as needed. 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 documented in this encounter [facility] 06-20-2024 History of Presen t illness Narrative Patient verified by last name and date of . Images from the original note were not included. 06/20/2024 Tiny Moreno (: 1990) is a 33 y.o. female , Established patient, here for evaluation of the following chief complaint(s): Hypothyroidism, Migraine, Medication Check (6 month ), and Health Maintenance (Pap- sees [facility] - will send for last pap from 12/2023/Flu vaccine- refuse/Covid vaccine- not done) ASSESSMENT/PLAN: 1. 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 2. Migraine without aura and without status migrainosus, not intractable Assessment & Plan: Stable, continue Fioricet as needed. 3. Influenza vaccine refused Follow up in about 6 months (around 12/19/2024). SUBJECTIVE/OBJECTIVE: HPI -Ev comes in today for 6-month follow-up on her hypothyroidism, she has no complaints today says she is doing well on her medications she is wondering if there is anything natural or homeopathic that she can take for her thyroid which currently is not possible. She has no other complaints at this time, see ROS. Her migraines seem to be well-controlled. She brings in lab work which is essentially all normal. Review of Systems Constitutional: Negative for chills and fever. Respiratory: Negative for shortness of breath. Cardiovascular: Negative for chest pain and palpitations. Gastrointestinal: Negative for abdominal pain, blood in stool, constipation and diarrhea. Genitourinary: Negative for dysuria, frequency, hematuria and urgency. Neurological: Negative for weakness and numbness. Psychiatric/Behavioral: Negative for dysphoric mood. The patient is not nervous/anxious. Vitals: 06/20/24 0833 BP: 99/64 Pulse: 81 SpO2: 98% Weight: 154 lb 9.6 oz (70.1 kg) Height: 5' 5.5" (1.664 m) Physical Exam Vitals and nursing note reviewed. Constitutional: General: She is not in acute distress. Appearance: Normal appearance. HENT: Head: Normocephalic. Right Ear: Tympanic membrane, ear canal and external ear normal. Left Ear: Tympanic membrane, ear canal and external ear normal. Mouth/Throat: Mouth: Mucous membranes are moist. Pharynx: Oropharynx is clear. Eyes: Extraocular Movements: Extraocular movements intact. Pupils: Pupils are equal, round, and reactive to light. Neck: Vascular: No carotid bruit. Cardiovascular: Rate and Rhythm: Normal rate and regular rhythm. Heart sounds: Normal heart sounds. No murmur heard. Pulmonary: Effort: Pulmonary effort is normal. Breath sounds: Normal breath sounds. Abdominal: General: Bowel sounds are normal. Palpations: Abdomen is soft. Musculoskeletal: General: Normal range of motion. Cervical back: Normal range of motion. Lymphadenopathy: Cervical: No cervical adenopathy. Skin: General: Skin is warm and dry. Neurological: General: No focal deficit present. Mental Status: She is alert and oriented to person, place, and time. Psychiatric: Mood and Affect: Mood normal. An electronic signature was used to authenticate this note. Shiraz Harmon MD 06/20/2024 11:19 AM documented in this encounter [facility] 04-03-2024 Telephone encount er Note Prescription Request: Last medication check: 07/08/22 Last physical exam: 12/12/23 Next scheduled appointment: 06/20/24 Last date of refill on this medication: 01/17/24 [facility] 04-03-2024 Miscellaneous Notes Formattin g of this note might be different from the original. Prescription Request: Last medication check: 07/08/22 Last physical exam: 12/12/23 Next scheduled appointment: 06/20/24 Last date of refill on this medication: 01/17/24 documented in this encounter [facility] 01-17-2024 Telephone encount er Note Reviewed chart. Refill appropriate. RX sent. [facility] 01-17-2024 Miscellaneous Notes Formattin g of this note might be different from the original. Reviewed chart. Refill appropriate. RX sent. Prescription Request: Last medication check: 07/08/22 Last physical exam: 12/12/23 Next scheduled appointment: 06/20/24 Last date of refill on this medication: 09/30/23 documented in this encounter [facility] 01-17-2024 Telephone encount er Note Prescription Request: Last medication check: 07/08/22 Last physical exam: 12/12/23 Next scheduled appointment: 06/20/24 Last date of refill on this medication: 09/30/23 [facility] 12-12-2023 Evaluation + Plan note Associated Problem(s): Migraine without aura and without status migrainosus, not intractable Gisela, responds well to her Fioricet. 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 [facility] 12-12-2023 Miscellaneous Notes Associate d Problem(s): Migraine without aura and without status migrainosus, not intractable Gisela, responds well to her Fioricet. 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 documented in this encounter [facility] 12-12-2023 History of Presen t illness Narrative Patient verified by last name and date of . Images from the original note were not included. 12/12/2023 Tiny Moreno (: 1990) is a 33 y.o. female , Established patient, here for evaluation of the following chief complaint(s): Annual Exam, Blood Work, and Health Maintenance (Hiv/hep c screening- refuse/Mmr vaccine- done when child/Hep b vaccine- refuse/Pap- see Dr Tesfaye appt next month /Covid vaccine- not done) ASSESSMENT/PLAN: 1. Annual physical exam 2. 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 3. Migraine without aura and without status migrainosus, not intractable Assessment & Plan: Gisela, responds well to her Fioricet. Follow up in about 6 months (around 06/12/2024). SUBJECTIVE/OBJECTIVE: CARMELO Quijano comes in today for an annual exam, she brings in 2 sets of lab work 1 from last May and 1 from last Tuesday. May labs were all normal the most recent lab work the only thing that was abnormal was her LDL had gone up a little bit from 89-113 so we discussed diet and exercise. She has no other complaints, see ROS. Review of Systems Constitutional: Negative for chills and fever. Respiratory: Negative for shortness of breath. Cardiovascular: Negative for chest pain and palpitations. Gastrointestinal: Negative for abdominal pain, blood in stool, constipation and diarrhea. Genitourinary: Negative for dyspareunia, dysuria, frequency, hematuria and urgency. Neurological: Negative for weakness and numbness. Psychiatric/Behavioral: Negative for dysphoric mood. The patient is not nervous/anxious. Vitals: 12/12/23 0844 BP: 100/69 Pulse: 96 SpO2: 98% Weight: 155 lb (70.3 kg) Height: 5' 5.5" (1.664 m) Physical Exam Vitals and nursing note reviewed. Constitutional: General: She is not in acute distress. Appearance: Normal appearance. HENT: Head: Normocephalic. Right Ear: Tympanic membrane, ear canal and external ear normal. Left Ear: Tympanic membrane, ear canal and external ear normal. Mouth/Throat: Mouth: Mucous membranes are moist. Pharynx: Oropharynx is clear. Eyes: Extraocular Movements: Extraocular movements intact. Pupils: Pupils are equal, round, and reactive to light. Neck: Vascular: No carotid bruit. Cardiovascular: Rate and Rhythm: Normal rate and regular rhythm. Heart sounds: Normal heart sounds. No murmur heard. Pulmonary: Effort: Pulmonary effort is normal. Breath sounds: Normal breath sounds. Abdominal: General: Bowel sounds are normal. Palpations: Abdomen is soft. Musculoskeletal: General: Normal range of motion. Cervical back: Normal range of motion. Lymphadenopathy: Cervical: No cervical adenopathy. Skin: General: Skin is warm and dry. Neurological: General: No focal deficit present. Mental Status: She is alert and oriented to person, place, and time. Psychiatric: Mood and Affect: Mood normal. An electronic signature was used to authenticate this note. Shiraz Harmon MD 12/12/2023 9:06 AM documented in this encounter [facility] 10-05-2023 Telephone encount er Note Patient is scheduled for 12-12-[address] Harmon [facility] 10-05-2023 Miscellaneous Notes Formattin g of this note might be different from the original. Patient is scheduled for 12-12-[address] Harmon Called and LM for patient---see TE Rx sent with no refills. Has not been seen in over a year. Please schedule visit for physical and blood work. Prescription Request: Last medication check: 07-08-22 Last physical exam: 11-16-21 Next scheduled appointment: none Last date of refill on this medication 03-28-23 documented in this encounter [facility] 10-03-2023 Telephone encount er Note Called and LM for patient---see TE [facility] 10-03-2023 Miscellaneous Notes Formattin g of this note might be different from the original. Called and LM for patient---see TE Rx sent with no refills. Has not been seen in over a year. Please schedule visit for physical and blood work. Prescription Request: Last medication check: 07-08-22 Last physical exam: 11-16-21 Next scheduled appointment: none Last date of refill on this medication 03-28-23 documented in this encounter [facility] 09-30-2023 Telephone encount er Note Rx sent with no refills. Has not been seen in over a year. Please schedule visit for physical and blood work. [facility] 09-30-2023 Miscellaneous Notes Formattin g of this note might be different from the original. Rx sent with no refills. Has not been seen in over a year. Please schedule visit for physical and blood work. Prescription Request: Last medication check: 07-08-22 Last physical exam: 11-16-21 Next scheduled appointment: none Last date of refill on this medication 03-28-23 documented in this encounter [facility] 09-30-2023 Telephone encount er Note Prescription Request: Last medication check: 07-08-22 Last physical exam: 11-16-21 Next scheduled appointment: none Last date of refill on this medication 03-28-23 [facility] 03-29-2023 Telephone encount er Note Last read by Tiny Moreno at 5:17 PM on 03/28/2023. [facility] 03-29-2023 Miscellaneous Notes Formattin g of this note might be different from the original. Last read by Tiny Moreno at 5:17 PM on 03/28/2023. Patient notified and advised to call office to schedule. That is not our normal policy, if someone is on medication they should be seen twice a year Are you ok with just once a year appointment? Prescription Request: Last medication check: 07/08/22 Last physical exam: 11/16/21 Next scheduled appointment: na Last date of refill on this medication 09/20/22 Sent [employer] message to patient advising she needs to schedule. We have not seen her in office since 07/08/22. documented in this encounter [facility] 03-28-2023 Telephone encount er Note Patient notified and advised to call office to schedule. [facility] 03-28-2023 Miscellaneous Notes Formattin g of this note might be different from the original. Patient notified and advised to call office to schedule. That is not our normal policy, if someone is on medication they should be seen twice a year Are you ok with just once a year appointment? Prescription Request: Last medication check: 07/08/22 Last physical exam: 11/16/21 Next scheduled appointment: na Last date of refill on this medication 09/20/22 Sent [employer] message to patient advising she needs to schedule. We have not seen her in office since 07/08/22. documented in this encounter [facility] 03-28-2023 Telephone encount er Note That is not our normal policy, if someone is on medication they should be seen twice a year [facility] 03-28-2023 Telephone encount er Note Are you ok with just once a year appointment? [facility] 03-28-2023 Telephone encount er Note Prescription Request: Last medication check: 07/08/22 Last physical exam: 11/16/21 Next scheduled appointment: na Last date of refill on this medication 09/20/22 Sent [employer] message to patient advising she needs to schedule. We have not seen her in office since 07/08/22. 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 Migraine without aura and without status migrainosus, not intractable [facility] Diagnosis Onset Date Resolution Status Vagina itching noneactive Encounter for routine gynecological examination noneactive [facility] Work Phone: Evaluation note* Diagnosis 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- Primary Migraine without aura and without status migrainosus, not intractable Dysthymia Dysthymic disorder Annual physical exam- Primary Routine general medical examination at a [facility] care [facility] Hypothyroidism due to Dnaielle's thyroiditis Migraine without aura and without status migrainosus, not intractable 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- Primary Migraine without aura and without status migrainosus, not intractable Influenza vaccine refused [facility] Diagnosis 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- Primary Migraine without aura and without status migrainosus, not intractable Dysthymia Dysthymic disorder Annual physical exam- Primary Routine general medical examination at a [facility] care facility 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 Migraine without aura and without status migrainosus, not intractable 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- Primary Migraine without aura and without status migrainosus, not intractable Influenza vaccine refused Annual physical exam- Primary Routine general medical examination at a [facility] facility 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 Work Phone: Reason for referral (narrative)No reason for referral information [facility] Work Phone: Reason for Referral Status Reason Specialty Diagnoses / Procedures Referre d By Contact Referred To Contact [facility] Diagnoses Palpitations Procedures Cardiac event monitor Shiraz Harmon MD [address] [place] [address], [place] [address] Assessments Diagnosis Palpitations Advance Directives No Advanced Directives Records FoundDocuments on File Type Date Recorded Patient Skin Therapist Expl anation ACP-Advance Directive ACP-Power of Professor Of Latin American Studies Latest Code Status on File Code Status Date Activated Date Inactivated Comments Full Code 05/09/2017 7:41 PM 05/09/2017 7:47 PM Advance Directive Response Recorded Date/ Time Living Will No October 31, 2015 10:10am Power of Professor Of Latin American Studies No October 30 10:10am Chief Complaint and Reason for Visit 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 Vagina itching Encounter for routine gynecological examination Chief Complaint Admit Date Hypothyroid February 21, 2025 1:03p m Reason for Visit Admit Date Danielle's thyroiditis February 21, 2025 1 :03pm Family History No Family History Records Found Relationship Condition Age at Onset Recorded Date/T nathan grandfather Malignant neoplasm of breast Unknown grandfather Malignant neoplasm Unknown Malignant neoplasm of colon Unknown Relationship Condition Age at Onset Recorded Date/T nathan Not Specified Crohn's disease Unknown Depression Unknown Myocardial infarction Unknown Seizures Unknown Hypertension Unknown Disorder of thyroid Unknown grandfather Malignant neoplasm of breast Unknown grandfather Malignant neoplasm Unknown Malignant neoplasm of colon Unknown Summary Purpose Additional Source Comments Reason for Visit (unrecogniz ed section and content) Reason Comments Med Refill Reason Comments Annual Exam Blood Work Health Maintenance Hiv/hep c screening- refuseMmr vaccine- done when childHep b vaccine- refusePap- see Dr Mera schmidt next month Covid vaccine- not done Reason Comments Hypothyroidism Migraine Medication Check 6 month Health Maintenance Pap- sees [facility] - will send for last pap from 12/2023Flu vaccine- refuseCovid vaccine- not done Reason Comments Annual Exam Blood Work Cmp and lipid and ts h done 06/03/24 Health Maintenance Hiv/hep c screening- refuseHep b vaccine- refuse Care Teams (unrecognized sec tion and content) Software Support Representative Relationship Specialty Start Date End Date Shiraz Harmon MD [address] [place] [id number] PCP - General 09/27/19 Software Support Representative Relationship Specialty Start Date End Date Shiraz Harmon MD [address] [place] [id number] PCP - General 09/27/19 Software Support Representative Relationship Specialty Start Date End Date Shiraz Harmon MD [address] [place] [id number] PCP - General 09/27/19 Software Support Representative Relationship Specialty Start Date End [place] [id number] PCP - General 09/27/19 Software Support Representative Relationship Specialty Start Date End [place] [address] PCP - General 09/27/19 Team Status: Inactive Member Role Status Dates Chelle Curran APPRAISER ART, APPRAISER ART-C Attending Provider Active Team Status: Inactive Member Role Status Dates Chelle Curran APPRAISER ART, APPRAISER ART-C Attending Provider, Referring Provider Active Software Support Representative Relationship Specialty Start Date End [place] [address] PCP - General 09/27/19 Software Support Representative Relationship Specialty Start Date End [place] [address] PCP - General 09/27/19 Software Support Representative Relationship Specialty Start Date End [place] [address] PCP - General 09/27/19 Team Status: Active Member Role/Relationship Status Dates Dr. Shiraz Harmon MD Primary Care Provider Active Team Status: Inactive Member Role/Relationship Status Dates Dr. Alex Tony MD Attending Provider Active Sta rt: February 21, 2025 End: February 21, 2025 Dr. Shiraz Harmon MD Primary Care Provider Active Start: February 21, 2025 End: February 21, 2025 Dr. Shiraz Harmon MD Referring Provider Active Start: February 21, 2025 End: February 21, 2025 Goals (unrecognized section and content) Goals may be documented in a n alternate sectionGoals may be documented in an alternate section INFORMATION SOURCE (unrecogn ized section and content) DATE CREATED AUTHOR 12/27/2024 [facility] DATE CREATED AUTHOR AUTHOR'Chavo POWELL 02/23/2025 [facility] FOR RECORDS PERTAINING TO PATIENTS WHO ARE OR HAVE BEEN ENROLLED IN A CHEMICAL DEPENDENCY/SUBSTANCEABUSE PROGRAM, SOME INFORMATION MAY BE OMITTED. This clinical summary was aggregated from multiple sources. Caution should be exercised in using it in the provision of clinical care. This summary normalizes information from multiple sources, and as a consequence, information in this document may materially change the coding, format and clinical context of patient data. In addition, data may be omitted in some cases. CLINICAL DECISIONS SHOULD BE BASED ON THE PRIMARY CLINICAL RECORDS. [employer] provides no warranty or guarantee of the accuracy or completeness of information in this document.
== END | disposition home or self-care (01) ==
LOC: MTLAB 07:23
PROVIDERS: PCP Family Medicine; Referring Provider Internal Medicine Endocrinology, Diabetes & Metabolism; Visit Provider Internal Medicine Endocrinology, Diabetes & Metabolism
DX: E06.3 Autoimmune thyroiditis (principal)
CPT/HCPCS: 36415; 84439; 84443